=== PATIENT | male | born 1965 | race Two or more races ===

== ENCOUNTER → 2016-05-20 | Day surgery (SDC) | payer BC ==
[2016-05-20] VITALS (11 sets, daily range): BP systolic 99–136; BP diastolic 64–87
[~2016-05-20] VITALS: Ht 182.9 cm; Wt 86.2 kg
[~2016-05-20] MED LIST: Bupivacaine 0.25% Inj 30ml INJ ONE; Bupivacaine w/Epi 0.25% 30ml Vial INJ ONE; Dexamethasone 4mg/ml vial ONE; DiphenhydrAMINE 50mg/ml Inj IVP PRN; Duramorph PF 10mg/10ml amp IV ONE; Hydromorphone 0.5mg/0.5ml inj IVP PRN; Kenalog-40 1ml Vial ONE; Ketorolac 30mg Inj IM ONE; Ketorolac 30mg Inj IV PRN; Ketorolac 30mg Inj ONE; LR 1000ml 1,000 ML IVLG SCH; LR 1000ml ONE; Labetalol 5mg/ml 20ml vial IV PRN; Lidocaine 1% 10mg/ml/Epi 0.005mg/ml 30ml vial INJ ONE; Lidocaine 1% MPF 10mg/ml 5ml ONE; Metoclopramide 10mg/2ml Inj ONE; Midazolam 2mg/2ml Inj IVP PRN; Midazolam 2mg/2ml Inj ONE; Morphine Sulfate 2mg/ml Inj IVP PRN; Morphine Sulfate PF 10 ML ONE; NKM; NS Irrig 2000ml IRRIG ONE; NS Irrig 4000ml IRRIG ONE; Norco 5mg/325mg tab ORAL PRN; Propofol 10mg/ml 20ml IV ONE; ceFAZolin 1gm/50ml Premix 50 ML IV ONE; celeBREX 200mg Cap **SURGERY PATIENTS ONLY ORAL ONE; fentaNYL 100 mcg/2 mL IV PRN; fentaNYL 250mcg/5ml ONE; oxyCONTIN 20mg tab ORAL ONE
--- NOTE | 2016-05-20 07:03 | Pre-Procedure Note/Attestation ---
Pre-Procedure Note/Attestation Complete Prior to Procedure Planned Procedure: right Procedure Narrative: knee arthroscopic medial menisectomy Indications for Procedure Pre-Operative Diagnosis: right knee medial menisecus tear Attestation I attest that I discussed the nature of the procedure; its benefits; risks and complications; and alternatives (and the risks and benefits of such alternatives ), prior to the procedure, with the patient (or the patient's legal goodwill representative). I attest that, if there was a reasonable possibility of needing a blood transfusion, the patient (or the patient's legal goodwill representative) was given the [facility] standardized written summary, pursuant to the Kendrick Graham Blood Safety Act ([place] Health and Safety Code # 1645, as amended). I attest that I re-evaluated the patient just prior to the surgery and that there has been no change in the patient's H&P, except as documented below: FARIDA ELIZONDO May 20, 2016 07:03
--- NOTE | 2016-05-20 07:04 | Operative Note - PDOC ---
Operative Note Operative Note Pre-op Diagnosis: right knee medial menisecus tear Procedure: right knee arthroscopic medial menisectomy Post-op Diagnosis: same as pre-op plus Operative Findings: consistent w/pre-op dx studies Anesthesia: MAC Specimen: none Complications: none Condition: stable Estimated Blood Loss: none Implant(s) used?: No FARIDA ELIZONDO May 20, 2016 07:04
--- NOTE | 2016-05-20 09:23 | Anethesia Preoperative Eval ---
Anesthesia Pre-op PMH/ROS General Date of Evaluation: May 20, 2016 Anesthesiologist: Domingo ASA Score: ASA 2 Mallampati Score Class I : Soft palate, uvula, fauces, pillars visible Class II: Soft palate, uvula, fauces visible Class III: Soft palate, base of uvula visible Class IV: Only hard plate visible Mallampati Classification: Class II Surgeon: Sathya Diagnosis: Right medial meniscus tear Surgical Procedure: Right knee arthroscopy and medial meniscectomy Anesthesia History: none Family History: no anesthesia problems Allergies: Coded Allergies: CIPROFLOXACIN (Verified Allergy, Unknown, 05/19/16) Medications: see eMAR Past Medical History Cardiovascular: Denies: CAD, HTN, AR, arrhythmia, other, valve dz Pulmonary: Denies: COPD, KINSEY, asthma, other Gastrointestinal/Genitourinary: Reports: GERD, Denies: CRI, ESRD, other Neurologic/Psychiatric: Denies: CVA, TIA, dementia, depression/anxiety, other Endocrine: Denies: DM, hypothyroidism, other, steroids HEENT: Denies: TELLER (L), TELLER (R), cataract (L), cataract (R), glaucoma, other Hematology/Immune: Denies: DVT, anemia, bleeding disorder, other Musculoskeletal/Integumentary: Denies: DDD, DJD, OA, RA, edema, other PSxH Narrative: lap appy Anesthesia Pre-op Phys. Exam Physician Exam Last Vital Signs Date Time Temp Pulse Resp B/P Pulse Ox O2 Delivery O2 Flow Rate FiO2 05/20/16 09:01 96.3 70 18 136/83 99 Room Air Constitutional: NAD Cardiovascular: RRR Respiratory: CTA Airway Exam Mallampati Score: Class II MO: full ROM: full Teeth: intact Anesthesia Pre-op A/P Labs see chart Studies Pre-op Studies: EKG - sr Risk Assessment & Plan Assessment: ASA II Plan: GA Status Change Before Surgery: No Pre-Antibiotics Drug: Ancef 2g Given Within 1 Hr of Incision: Yes LEIGHTON BERG M.D. May 20, 2016 09:23
--- NOTE | 2016-05-20 09:27 | 48 Hour Post Anesthesia Eval ---
Post Anesthesia Evaluation Procedure: Right knee arthroscopy, medial meniscectomy Date of Evaluation: May 20, 2016 Blood Pressure Systolic: 103 0: 66 Pulse Rate: 68 Respiratory Rate: 16 O2 Sat by Pulse Oximetry: 100 Airway: patent Nausea: No Vomiting: No Pain Intensity: 0 Hydration Status: adequate Cardiopulmonary Status: at baseline Mental Status/LOC: patient returned to baseline Post-Anesthesia Complications: 0 Follow-up care needed: ready to discharge LEIGHTON BERG M.D. May 20, 2016 09:27
--- NOTE | 2016-05-20 09:27 | Immediate Post-Op Evaluation ---
Immediate Post-Op Evalulation Immediate Post-Op Evalulation Procedure: Right knee arthroscopy, medial meniscectomy Date of Evaluation: May 20, 2016 Time of Evaluation: 11:27 IV Fluids: 500 Blood Products: 0 Estimated Blood Loss: min Urinary Output: 0 Blood Pressure Systolic: 99 Blood Pressure Diastolic: 64 Pulse Rate: 66 Respiratory Rate: 11 O2 Sat by Pulse Oximetry: 100 Temperature (Fahrenheit): 97.5 Pain Score (1-10): 0 Nausea: No Vomiting: No Complications 0 Patient Status: awake, reacts, patent, none Hydration Status: adequate Drug: Ancef 2g Given Within 1 Hr of Incision: Yes LEIGHTON BERG M.D. May 20, 2016 09:27
--- NOTE | 2016-05-20 20:28 | Operative Note - Dictated ---
DATE OF OPERATION: 05/20/2016 PREOPERATIVE DIAGNOSIS: Right knee medial meniscus tear. POSTOPERATIVE DIAGNOSES: 1. Right knee medial meniscus tear. 2. Synovitis of medial and lateral patellofemoral compartment. 3. Grade 2 chondral damage of posterior and medial femoral condyle. PROCEDURES: 1. Right knee arthroscopic partial medial meniscectomy. 2. Synovectomy of medial and lateral patellofemoral compartment. SURGEON: Jed Mcdonnell M.D. ANESTHESIA: MAC with local. INDICATION FOR PROCEDURE: The patient is a pleasant gentleman, who has had a MRI, which showed a significant meniscal tear. He failed conservative treatment. He had continued pain and elected to undergo a right knee arthroscopic medial meniscectomy. Risks, limitations, expectations, and complications of the procedure were discussed in detail including continued pain, need for future surgery, risk of anesthesia, medical complications, DVT, PE, and mortality risk. DESCRIPTION OF PROCEDURE: An informed consent was obtained. The patient was taken to the operative room and placed under general anesthesia. Ancef was administered. Time-out was performed. Tourniquet was applied to his right proximal thigh. Right leg was prepped and draped in a sterile manner. Under sterile conditions, 20 mL of 0.25% Marcaine plain injected into the right knee. Portal sites were marked out and injected with 1% lidocaine with epinephrine. Esmarch was used to exsanguinate the extremity. Inferolateral stab incision was then made. Trocar was introduced into the knee joint. There is no chondral damage. The medial gutter and lateral gutter are free of any loose bodies. Medial compartment was entered. There is a complex tear of posterior horn and medial meniscus. The partial medial meniscectomy using combination of zackery and biters was performed. There was grade 3 chondral damage of posterior femoral condyle. Synovectomy at the medial intercondylar notch and lateral compartment was performed to better visualize the compartments of the knee. The anterior cruciate ligament was probed and noted to be intact. Lateral compartment was entered and free of any meniscal or chondral damage. Instruments removed. Portal sites were closed with 3-0 Monocryl sutures. Steri-Strips and a sterile dressing were applied. The patient was awoken and taken to recovery room with stable vital signs. ESTIMATED BLOOD LOSS: None. COMPLICATIONS: None. SPECIMENS: None. IMPLANTS: None. Jed Mcdonnell M.D. DR: HARPAL JOB#: [id number] CC:
== END | disposition home or self-care (01) ==
LOC: SUR 08:04
DX: M23.221 Derangement of posterior horn of medial meniscus due to old tear or injury, right knee (principal); M65.861 Other synovitis and tenosynovitis, right lower leg; M94.8X6 Other specified disorders of cartilage, lower leg; E78.5 Hyperlipidemia, unspecified; K21.9 Gastro-esophageal reflux disease without esophagitis; E55.9 Vitamin D deficiency, unspecified; Z90.49 Acquired absence of other specified parts of digestive tract; Z87.891 Personal history of nicotine dependence; Z88.3 Allergy status to other anti-infective agents
CPT/HCPCS: 29876; 29881; 97161; J0690; J1100; J1885; J2250; J2274; J2405; J2704; J2765; J3010; J3301; J3490; J7120; 94003; 94150